=== PATIENT | male | born 1945 | race Caucasian/White ===

== ENCOUNTER 2024-07-17 05:48 | Observation (INO) | payer OTHER ==
[2024-07-11 13:30] LABS: BASOPHILS # (AUTO) 0.02 K/uL (0.00-0.20); BASOPHILS % (AUTO) 0.3 % (0.0-5.0); EOSINOPHILS % (AUTO) 1.3 % (0.0-8.0); HEMATOCRIT 36.6 % (42-54); IMMATURE GRANULOCYTE ABSOLUTE 0.03 K/uL (0-1); LYMPHOCYTES # (AUTO) 2.1 K/uL (1.0-4.8); LYMPHOCYTES % (AUTO) 28.3 % (21.0-51.0); MEAN CORPUSCULAR HEMOGLOBIN 28.7 pg (27.0-33.0); MEAN CORPUSCULAR HGB CONC 32.5 g/dL (32.0-36.0); MEAN CORPUSCULAR VOLUME 88.4 fL (79-99); MONOCYTES # (AUTO) 0.8 K/uL (0.1-1.0); MONOCYTES % (AUTO) 11.1 % (3.0-13.0); NEUTROPHILS # (AUTO) 4.4 K/uL (1.8-7.7); NEUTROPHILS % (AUTO) 58.6 % (40.0-77.0); PLATELET COUNT (AUTO) 241 K/uL (130-400); RED BLOOD CELL COUNT(AUTO) 4.14 MIL/uL (4.50-6.20); RED CELL DISTRIBUTION WIDTH 14.3 % (11.0-15.5); WHITE BLOOD COUNT (AUTO) 7.5 K/uL (4.8-10.8)
[2024-07-11 13:40] LABS: APPEARANCE,URINE CLEAR (CLEAR); BILIRUBIN,URINE NEGATIVE (NEGATIVE); COLOR,URINE LIGHT-YELLOW (YELLOW); GLUCOSE, URINE (UA) NEGATIVE (NEGATIVE); KETONES,URINE NEGATIVE (NEGATIVE); LEUKOCYTE ESTERASE ,URINE NEGATIVE Leu/uL (NEGATIVE); NITRATE,URINE NEGATIVE (NEGATIVE); OCCULT BLOOD,URINE NEGATIVE (NEGATIVE); PH,URINE 5.5 (5.0-8.0); PROTEIN,URINE NEGATIVE (NEGATIVE); UROBILINOGEN,URINE 0.2 mg/dL (0.2-1.0)
[2024-07-11 13:41] LABS: CREATININE 1.1 mg/dL (0.5-1.3); POTASSIUM 4.2 mmol/L (3.5-5.1)
[2024-07-11 13:42] LABS: INR 0.97 (0.85-1.15); PROTHROMBIN TIME 10.5 SEC (9.6-11.6)
[2024-07-11 13:43] LABS: ADD UA MICROSCOPIC NO
[2024-07-11 13:43] LABS: PARTIAL THROMBOPLASTIN TIME 27.9 SEC (26.3-35.5)
[2024-07-11 14:05] VITALS: BP 130/70; PULSE 63; RESP 18; TEMP 98.1
[~2024-07-17] VITALS: Ht 176.8 cm; Wt 111.0 kg
[2024-07-17] VITALS (26 sets, daily range): BP systolic 96–156; BP diastolic 40–75; PULSE 55–67; RESP 15–21; TEMP 97.3–97.9; O2SAT 96–100
[~2024-07-17 05:48] MED LIST: ASPI-1197 PO; ATOR20TA65 PO; BETA1TAB20 PO; CARB15DR OP; CARV6.25 PO; CHOL378P14 PO; CYAN100099 PO; FOLI1 PO; HYDR12.54 PO; LATA2.5D14 OP; LID5O TP; LISI40TA9 PO; METF-445 PO; OMEP20CA12 PO; OXYB5TAB20 PO; PRIM250T24 PO; VITA-427 PO
[2024-07-17] MEDS: acetaMINOPHEN 100 ML ONE (06:35)
[2024-07-17] MEDS: FAMOTIDINE 20MG VIAL IV ONE (06:35)
[2024-07-17] MEDS ORDERED: ROPivacaine 0.5% 5MG/ML 30ML ONE (06:43)
[2024-07-17] MEDS ORDERED: ketaMINE HCL 100 MG/ML 5ML VIAL IJ ONE (06:46)
[2024-07-17] MEDS ORDERED: LIDOCAINE PF 100MG/5ML (2%) SYRINGE 5ML ONE (06:51)
[2024-07-17] MEDS ORDERED: proPOFol 10 MG/ML 20ML VIAL IV ONE (06:52)
[2024-07-17] MEDS ORDERED: rocuRONium bROMide 10MG/1ML 5ML VL ONE ×2 (06:52→08:16)
[2024-07-17] MEDS: ceFAZolin SODIUM 2 GM VIAL ONE (06:53)
[2024-07-17] MEDS: 0.9%NACL 1000ML 1,000 ML IV ONE (06:53)
[2024-07-17] MEDS ORDERED: FENTanyl CITRate PF 50 MCG/1 ML 2ML VIAL ONE (06:53)
[2024-07-17] MEDS ORDERED: dexaMETHasone SOD PHOSPHATE 10MG/ML 1ML VIAL ONE (07:27)
[2024-07-17] MEDS ORDERED: ondanSETRON 4MG INJ ONE (07:27)
--- NOTE | 2024-07-17 07:27 | DS ---
Discharge Summary Hospital Course Summary: The patient was admitted to the hospital postoperatively on 07/17/2024 after undergoing right total knee arthroplasty. They did well with routine postoperative pain control. They worked well with physical therapy. Hospital course was otherwise uncomplicated. They were subsequently able to be discharged on postoperative day 2 once discharge arrangements were made with home health physical therapy. Piping Blocker(s): none Procedure(s): Right total knee arthroplasty, 07/17/2024 Assessment/Plan: ASSESSMENT: Postop day two status post right total knee arthroplasty PLAN: See discharge instructions Discharge Instructions: Begin working with Home Health physical therapy. Dressing may be removed 07/20/2024 and left open to air. Showers ok allowing soap and water to run over the wound. Pat dry. Do not submerge wound in tub/pool. Do not apply ointments. Do not apply Betadine. Do not apply peroxide. Ice packs to decrease pain/swelling. Prescriptions have been sent to the pharmacy: *Genes[place] 5/325mg 1-2 tab every 6 hours as needed for severe pain. (please call for refills) Cyclobenzaprine 5mg 1 tab every 8 hours as needed for muscle spasm pain. Gabapentin 100mg 1 tab every 8 hours (may discontinue if drowsy). Colace 100mg 1 tab orally twice a day as needed for constipation. Aspirin 81 mg twice a day for 30 days to prevent blood clots. Call for a follow-up appointment in 2-3 weeks at [facility]. Home Medications: Reported Medications Vitamin B Complex (Vitamin B Complex) 1 Each Tablet, 1 EACH PO AM, TAB 07/14/24 Primidone (Mysoline) 250 Mg Tablet, 250 MG PO BID, TAB 07/14/24 Oxybutynin Chloride (Oxybutynin Chloride) 5 Mg Tablet, 1 TAB PO BID for urinary discomfort for 30 Days, #60 TAB 0 Refills 07/14/24 Omeprazole (Omeprazole) 20 Mg Capsule.dr, 1 CAP PO DAILY for 30 Days, #30 CAP 0 Refills 07/14/24 Vit A/Vit C/Vit E/Zinc/Copper (Preservision Areds Tablet) 2,148-113 Tablet, 1 TAB PO BID for 30 Days, #60 TAB 0 Refills 07/14/24 Metformin HCl (Metformin HCl) 850 Mg Tablet, 1 TAB PO BID for 30 Days, #60 TAB 0 Refills 11/22/24 Lisinopril (Lisinopril) 40 Mg Tablet, 1 TAB PO DAILY for 30 Days, #30 TAB 0 Refills 07/14/24 Lidocaine HCl (Lidocaine HCl 5% Oint 36Gm) 5 % Oint, 2 APPL TP AM PRN for PAIN, APPL 07/14/24 Latanoprost (Latanoprost) 0.005 % Drops, 1 DROP OP HS, ML 0 Refills 07/14/24 Hydrochlorothiazide (Hydrochlorothiazide) 12.5 Mg Tablet, 12.5 MG PO BID, TAB 07/14/24 Folic Acid (Folvite) 1 Mg Tab, 1 TAB PO DAILY for 30 Days, #30 TAB 0 Refills 07/14/24 Cyanocobalamin (Vitamin B-12) (B-12) 1,000 Mcg Tablet, 1 TAB PO DAILY for 30 Days, #30 TAB 0 Refills 07/14/24 Cholestyramine (with Sugar) (Cholestyramine Powder) 4 Gram Powder, 378 GM PO AM, APPL 07/14/24 Carboxymethylcellulose Sodium (Refresh Tears) 0.5 % Drops, 1 DROP OP 5XDAY for 30 Days, #15 ML 0 Refills 07/14/24 Aspirin (Aspirin) 81 Mg Tab.chew, 1 TAB PO HS for 30 Days, #30 TAB 0 Refills 07/14/24 Atorvastatin Calcium (Atorvastatin Calcium) 20 Mg Tablet, 20 MG PO HS, TAB 07/14/24 Carvedilol (Carvedilol) 6.25 Mg Tablet, 1 TAB PO BID for 30 Days, #60 TAB 0 Refills 07/14/24 RHEA MACARIO MD Jul 17, 2024 07:27
[2024-07-17] MEDS ORDERED: Carboxymethylcellulose Sodium (Refresh Tears) 1 DROP OP SCH (07:30)
[2024-07-17] MEDS ORDERED: CYCLOBENZAPRINE HCL 10 MG TABLET PO PRN (07:30)
[2024-07-17] MEDS ORDERED: PoTASSium chloRIDE 20MEQ ER 20 MEQ ERTAB PO PRN (07:30)
[2024-07-17] MEDS ORDERED: PoTASSium chl 10% ELIXIR 20MEQ 20 MEQ/15 ML UDCUP PO PRN (07:30)
[2024-07-17] MEDS ORDERED: DiphenhydrAMINE HCL 50 MG/ML VIAL IVP PRN (07:30)
[2024-07-17] MEDS ORDERED: FERROUS FUMARATE 324 MG TABLET PO PRN (07:30)
[2024-07-17] MEDS ORDERED: CALCIUM CARB 500MG PO PRN (07:30)
[2024-07-17] MEDS ORDERED: ondanSETRON 4MG INJ IVP PRN (07:30)
[2024-07-17] MEDS ORDERED: PoTASSium chloRIDE 20MEQ/100ML 100 ML IV PRN (07:30)
[2024-07-17] MEDS: TRANEXAMIC ACID 1000MG/10ML ONE ×2 (07:35→09:25)
--- NOTE | 2024-07-17 07:35 | EKG ---
[facility] Test Date: 2024-07-17 Test Time: 06:31:57 Pat Name: BROWN CARRERO Department: [facility] Room: 408 Gender: M Wood Calker: [id number] : 1945 Requested By: RHEA MACARIO Order Number: [id number] Reading MD: Jamilah Ashley Measurements Intervals [place] Rate: 54 P: -28 [place]: 159 QRS: -15 QRSD: 93 T: 23 QT: 411 QTc: 390 Interpretive Statements Sinus rhythm No previous ECG available for comparison Electronically Signed On 07-17-2024 10:51:29 LEATHER CURRIER by Jamilah Ashley Please click the below link to view image of tracing.
[2024-07-17] MEDS ORDERED: ePHEDrine SULFate 50 MG/ML AMPULE ONE (07:38)
[2024-07-17] MEDS: ketOROlac 30MG VIAL (30MG/ML) ONE (07:48)
[2024-07-17] MEDS: ROPivacaine 0.5% 5MG/ML 30ML ONE (07:48)
[2024-07-17] MEDS ORDERED: NEOSTIGMINE METHYLSULFATE 1MG/ML IV ONE (08:03)
[2024-07-17] MEDS ORDERED: GLYCOPYRROLATE 0.2 MG/ML 5 ML VIAL ONE (08:03)
[2024-07-17] MEDS: VIT A PO SCH (09:00)
[2024-07-17] MEDS: carVEDIlol 6.25 MG TABLET PO SCH (09:00)
[2024-07-17] MEDS: FOLic ACID 1 MG TABLET PO SCH (09:00)
[2024-07-17] MEDS: polyETHYLene GLYCol 3350 17 GM POWD.PACK PO SCH (09:00)
[2024-07-17] MEDS: CHOLESTYRAMINE 378 GM PO SCH (09:00)
[2024-07-17] MEDS: hydroCHLOROthiazide 25 MG TABLET PO SCH (09:00)
[2024-07-17] MEDS: PRIMIDONE 250 MG PO SCH (09:00)
[2024-07-17] MEDS: VIT C PO SCH (09:00)
[2024-07-17] MEDS: doCUSate SODIUM 100 MG CAP PO SCH (09:00)
[2024-07-17] MEDS: [UNRECOGNIZED DRUG - OTHER] PO SCH (09:00)
[2024-07-17] MEDS: GABApentin 100 MG CAPSULE PO SCH (09:00)
[2024-07-17] MEDS: LISINOPRIL 40 MG TABLET PO SCH (09:00)
[2024-07-17] MEDS: ZINC PO SCH (09:00)
[2024-07-17] MEDS: COPPER PO SCH (09:00)
[2024-07-17] MEDS: VIT E PO SCH (09:00)
[2024-07-17] MEDS: VITAMIN B COMPLEX 1 CAPSULE PO SCH (09:00)
[2024-07-17] MEDS: ketOROlac 15MG/ML VIAL (15MG/ML) IV SCH (10:12)
[2024-07-17] MEDS: ketOROlac 15MG/ML VIAL (15MG/ML) ONE (10:13)
[2024-07-17] MEDS: metFORmin HCL 500 MG TABLET PO SCH (11:12)
[2024-07-17] MEDS: PANTOPrazole 40 MG TAB DR PO SCH (11:12)
[2024-07-17] MEDS: 0.9%NACL 1000ML 1,000 ML IV SCH (11:30)
[2024-07-17] MEDS: HYDROcodone/APAP 5/325 1 TAB TABLET PO PRN (11:36)
--- NOTE | 2024-07-17 12:03 | HMCIMG ---
KNEE/PATELLA 1-2VWS RT REASON: S/P RT TKA SURGERY TECHNIQUE: 2 views were obtained. FINDINGS: There is a right total knee joint prosthesis in place. Remaining bone appears unremarkable. There are surgical changes in the soft tissue. There is no unexpected foreign body. IMPRESSION: 1. Documentation of right knee joint prosthesis
--- NOTE | 2024-07-17 14:18 | OP ---
Operative Note: DATE OF PROCEDURE: 07/17/24 PREOPERATIVE DIAGNOSIS: Right knee osteoarthritis. POSTOPERATIVE DIAGNOSIS: Right knee osteoarthritis. PROCEDURE PERFORMED: Right knee total knee arthroplasty. SURGEON: Chastity Lugo MD [employer] SALES CONSULTANT: Noy Keen. ANESTHESIA: General with adductor canal block. ANESTHESIA: GRETTA Nino. ESTIMATED BLOOD LOSS: 50cc. COMPLICATIONS: None. DRAINS: None. SPECIMENS REMOVED: resected bone. Not sent to pathology. IMPLANTS: [employer] Journey II BCS size 9 Oxinium femur, size 8 tibial base plate, 35 x 7.5 mm patella, 9 mm polyethylene STATEMENT OF MEDICAL NECESSITY: The patient is a 79-year-old male who suffers from right knee osteoarthritis failing conservative management. After discussion of the risks, benefits, and alternatives with the patient, they voluntarily agreed to undergo the aforementioned procedure. DESCRIPTION OF PROCEDURE: Patient was properly identified in the preoperative holding area. Surgical site marking was verified and surgery consent reviewed. The patient was then taken to the operating room and placed in supine position on the OR table. After induction of general anesthesia, preoperative antibiotics were given, all bony prominences were well-padded, and a well padded tourniquet was applied but not inflated at this time. The right lower extremity was then prepped and draped in usual sterile fashion. Surgical time out was done verifying correct surgery, side, site, and location to be performed. We then began the procedure by exsanguinating the limb using an Esmarch and inflating the tourniquet to 350 mmHg. At this point, we made an anterior midline incision using a 10 blade, coming down sharply the level of the fascia. Skin flaps were elevated medially and laterally. We then obtained a clean 10 blade and performed a standard medial parapatellar arthrotomy. We excised the infrapatellar fat pad. We performed our soft tissue releases off of the tibia. We transected the ACL and removed the anterior portion of the medial & lateral meniscus. We then brought the knee into hyperflexion with the patella everted. We used our entry reamer to enter the femoral canal. We then placed our intramedullary cutting guide for our distal femoral cutting block. We then performed our distal femoral osteotomy ensuring appropriate rotation and removed the bony wafer. We then removed these pins and block and then used jig 2 to size the distal femur with the after mentioned size found. We then placed our 5-in-1 cutting block in 3 degrees of external rotation and took our 5 cuts ensuring to protect the patellar tendon and the collateral ligaments. We then removed the cutting block and our bony fragments using a curved osteotome. We then placed our PCL retractor subluxating the tibia anteriorly. Using an extra medullary tibial cutting guide, we hung the block for our proximal tibial cut taking 2 mm off the more diseased portion. Prior to pinning this block in place, we ensured appropriate varus/valgus alignment and posterior slope similar to the [place] slope of the patient's knee. We then performed our proximal tibial osteotomy and removed the bony wafer using Bovie electrocautery to release any remaining soft tissue attachments. We then used our tibial sizing paddle and checked once more for varus & valgus alignment and found this to be appropriate. At this point, we pinned our tibial paddle in place. We then removed the PCL retractor and subluxated the tibia posteriorly while we placed our femoral trial component. We then finished preparing the notch with the reamer and box chisel. The notch portion of the trial femoral component was then placed. A posterior stabilized polyethylene, size 9 trial was placed. The knee was then taken through range of motion and found to have stable full range of motion. We then placed a bump under the ankle and everted the patella to perform our freehand cut of the undersurface the patella. We then sized our patella and reamed to the lug holes for this. We placed our trial patellar component and begin to take the knee through range of motion. The patella had significant lateral tracking so we performed a large lateral release. There was still mild lateral tracking that improved with towel clip approximation. We e lected to use the 7.5 thickness implant. At this point we began removing our trial components and punched the tibial keel prior to removing our tibial trial component. Final components were opened and cement was mixed on the back table while we injected local cocktail in the posterior capsule. We then thoroughly irrigated out the bone and dried the bony surfaces. We cemented our tibial component in place ensuring to remove excess cement and placed our trial polyethylene. We then cemented our femoral component in place once again taking time to ensure excess cement was removed leg was brought into full extension to help squeeze the excess cement from around the femoral component. We then brought the knee back in a flexion to remove this portion of the cement at this point we placed the ankle in a bump thoroughly irrigated off the patellar component and cemented our patellar component in standard fashion again removing excess cement. While we waited for the cement to cure, we thoroughly irrigated out the wound with normal saline. Once our cement had cured, we took the knee through a range of motion and found full and stable range of motion. We then elected to use the size 9 polyethylene and removed our trial polyethylene. We impacted our final polyethylene component in place in standard fashion and took the knee through a range of motion check once more. This was satisfactory so we began to repair the arthrotomy using #1 Vicryl in interrupted [id number] fashion. Subcutaneous tissue was repaired using 2-0 Vicryl. Running subcuticular 3-0 Monocryl stitch with Dermabond placed over this for the skin. We then applied a foam barrier dressing and a pressure dressing consisting of 4 x 4's fluffs and an Yevgeniy wrap. The tourniquet was then deflated. Patient was awakened from anesthesia, and they were taken to the recovery room in stable condition. CHASTITY LUGO MD Jul 17, 2024 14:18
[2024-07-17] MEDS: ceFAZolin SODIUM 2 GM VIAL IVP SCH (15:17)
--- NOTE | 2024-07-17 15:45 | NUR ---
ORTHO COORDINATOR: TEACHING REGARDING DVT AND PNEUMONIA PREVENTION, PAIN EXPECTATIONS AND PAIN MANAGEMENT. PATIENT UP TO CHAIR. AT BEDSIDE. SCD MACHINE IN ROOM. PATIENT RETURN DEMONSTRATED FOOT FLEXION AND EXTENSION EXERCISES. PAIN SCALE REVIEWED. PATIENT RATES CURRENT PAIN AT 1/10. INFORMED PATIENT THE REGIONAL BLOCK WILL BEGIN TO WEAR OFF WITHIN THE NEXT 8-12 HOURS AND TO MANAGE HIS PAIN. EDUCATED WE HAVE MEDICATION FOR PAIN FROM 1-10 ON PAIN SCALE. GOAL WAS TO MEDICATE PRIOR TO EXCESSIVE PAIN. PATIENT AND VERBALIZED UNDERSTANDING. PATIENT HAS NO ADDITIONAL QUESTIONS OR CONCERNS AT THIS TIME.
[2024-07-17] MEDS: INSULIN humuLIN R 100 UNIT/ML 3ML SQ SCH (16:30)
--- NOTE | 2024-07-17 16:38 | NUR ---
DCP CM DC MINE INSPECTOR MET WITH PT. PT IS INDEPENDENT PRIOR TO SURGERY, LIVES AT HOME WITH SPOUSE. DENIES ANY EQUIPMENT/SERVICES. FEELS SAFE TO GO BACK HOME, STILL DRIVE, SPOUSE ABLE TO ASSIST WITH TRANSPORTATION AND NEEDS NECESSARY. DISCUSSED MD RECOMMENDATIONS FOR HOME W/HH AND DME PT WILL NEED WALKER AND 3IN1 CHAIR, PT AGREEABLE, CONSENT SIGNED [facility] FOR [facility]. CM SENT ORDER, CLINICALS TO [facility] VIA SECURE FAX AND EMAIL, CONFIRMATION RECEIVED. PENDING REP RESPONSE. PT PENDING [facility] APPROVAL AND ASSIGN [facility] HEALTH AND DME. PRIMARY NURSE KHADRA MADE AWARE. DR MACARIO UPDATED. CM TO CONTINUE TO FOLLOW UP. Addendum: 07/17/24 at 1642 by JUNITO DUARTE LVN Amended: Links added.
[2024-07-17] MEDS: LATANOPROST 2.5 ML DROPS OP SCH (21:00)
[2024-07-17] MEDS: METFORMIN HCL 850 MG PO SCH (21:02)
[2024-07-17] MEDS: atorVAStatin 20 MG TABLET PO SCH (21:05)
--- NOTE | 2024-07-18 03:24 | NUR ---
Pt. has been tolerating oral fluids w/o n/v; refuses I.v. fluids.
[2024-07-18 04:31] VITALS: BP 122/59; PULSE 65; RESP 18; TEMP 97.4
[2024-07-18 05:20] LABS: HEMATOCRIT 30.7 % (42-54); MEAN CORPUSCULAR HGB CONC 31.9 g/dL (32.0-36.0); MEAN CORPUSCULAR VOLUME 87.7 fL (79-99); RED BLOOD CELL COUNT(AUTO) 3.5 MIL/uL (4.50-6.20); RED CELL DISTRIBUTION WIDTH 14.3 % (11.0-15.5); WHITE BLOOD COUNT (AUTO) 8.8 K/uL (4.8-10.8)
[2024-07-18 06:18] LABS: POTASSIUM 4.1 mmol/L (3.5-5.1)
[2024-07-18 06:19] LABS: CREATININE 1.5 mg/dL (0.5-1.3)
[2024-07-18] MEDS ORDERED: ketOROlac 15MG/ML VIAL (15MG/ML) IV PRN (07:30)
--- NOTE | 2024-07-18 07:53 | PN ---
Ortho postop day one. This morning patient is already out of bed enjoying his breakfast reporting adequate pain control. He is in no acute distress. Vital signs have remained stable. Afebrile. Voiding on his own without difficulty. Laboratory results reviewed. Noted to have a drop in hemoglobin and hematocrit as expected after TKA. Patient is asymptomatic and we will address per protocol. Incentive spirometry performed as instructed and returned demonstration adequate. The Yevgeniy bandage is removed. Anterior dressing intact. Gastrocnemius a soft nontender. Negative Homans. He is seated with the knee flex to 90 and have provided him a footstool to alternate extension. Extension -20. He has been applying ice. He has been ambulating in the confines of his room with the restroom privileges. He is pending further physical therapy this morning. PT yesterday 80 ft/100 ft. He is anticipating going home with a home health/PT. Voices would like discharge medications sent to [facility] in [facility]. Assessment: Status post right total knee arthroplasty. Asymptomatic acute post operative blood loss anemia. Plan: Continue with Dr. Lugo TKA protocol and discharge planning. Asymptomatic acute postoperative blood loss anemia addressed with the protocol Vitals/Labs Vital Signs Date Time Temp Pulse Resp B/P (MAP) Pulse Ox O2 Delivery O2 Flow Rate FiO2 07/18/24 04:31 97.3 65 18 122/59 98 Room Air 07/17/24 20:00 0 N/A Laboratory Tests 07/18/24 04:54 Medications Current Medications Cefazolin Sodium 2 gm STK-MED ONCE .ROUTE Last administered on 07/17/24at 07:45; Start 07/17/24 at 06:17; Stop 07/17/24 at 06:17; Status DC Sodium Chloride 1,000 ml @ As Directed STK-MED ONCE IV Last administered on 07/17/24at 06:53; Start 07/17/24 at 06:17; Stop 07/17/24 at 06:17; Status DC Acetaminophen 100 ml @ As Directed STK-MED ONCE .ROUTE; Start 07/17/24 at 06:35; Stop 07/17/24 at 06:35; Status DC Famotidine 20 mg STK-MED ONCE IV; Start 07/17/24 at 06:35; Stop 07/17/24 at 06:35; Status DC Ropivacaine 150 mg STK-MED ONCE .ROUTE; Start 07/17/24 at 06:43; Stop 07/17/24 at 06:43; Status DC Ketamine HCl 500 mg STK-MED ONCE IJ; Start 07/17/24 at 06:46; Stop 07/17/24 at 06:46; Status DC Lidocaine HCl 100 mg STK-MED ONCE .ROUTE; Start 07/17/24 at 06:51; Stop 07/17/24 at 06:57; Status DC Propofol 200 mg STK-MED ONCE IV; Start 07/17/24 at 06:52; Stop 07/17/24 at 06:57; Status DC Rocuronium [place] 50 mg STK-MED ONCE .ROUTE; Start 07/17/24 at 06:52; Stop 07/17/24 at 06:57; Status DC Fentanyl Citrate 100 mcg STK-MED ONCE .ROUTE; Start 07/17/24 at 06:53; Stop 07/17/24 at 06:57; Status DC Ketorolac Tromethamine 30 mg STK-MED ONCE .ROUTE Last administered on 07/17/24at 07:48; Start 07/17/24 at 06:59; Stop 07/17/24 at 06:59; Status DC Ropivacaine 150 mg STK-MED ONCE .ROUTE Last administered on 07/17/24at 07:48; Start 07/17/24 at 07:00; Stop 07/17/24 at 07:00; Status DC Tranexamic Acid 1,000 mg STK-MED ONCE .ROUTE Last administered on 07/17/24at 09:25; Start 07/17/24 at 07:00; Stop 07/17/24 at 07:00; Status DC Tranexamic Acid 1,000 mg STK-MED ONCE .ROUTE Last administered on 07/17/24at 07:35; Start 07/17/24 at 07:00; Stop 07/17/24 at 07:01; Status DC Sodium Chloride 1,000 ml @ 100 mls/hr Q10H IV Last administered on 07/17/24at 11:30; Start 07/17/24 at 07:30; Stop 07/18/24 at 07:29; Status DC Polyethylene Glycol 17 gm DAILY PO; Start 07/17/24 at 09:00; Stop 08/16/24 at 08:59 Bisacodyl 10 mg DAILY PRN RC; Start 07/20/24 at 07:30; Stop 08/19/24 at 07:29 Ketorolac Tromethamine 15 mg Q6H PRN IV; Start 07/18/24 at 07:30; Stop 07/22/24 at 07:29 Ferrous Fumarate 324 mg DAILY PRN PO; Start 07/17/24 at 07:30; Stop 08/16/24 at 07:29 Ondansetron HCl 4 mg Q6H PRN IVP; Start 07/17/24 at 07:30; Stop 08/16/24 at 07:29 Calcium Carbonate 500 mg Q12H PRN PO; Start 07/17/24 at 07:30; Stop 08/16/24 at 07:29 Diphenhydramine HCl 25 mg Q6H PRN IVP; Start 07/17/24 at 07:30; Stop 08/16/24 at 07:29 Cefazolin Sodium 2 gm Q8H IVP Last administered on 07/17/24at 21:01; Start 07/17/24 at 12:30; Stop 07/17/24 at 20:31; Status DC Cyclobenzaprine HCl 5 mg Q8H PRN PO; Start 07/17/24 at 07:30; Stop 08/16/24 at 07:29 Gabapentin 100 mg TID PO Last administered on 07/17/24at 21:03; Start 07/17/24 at 09:00; Stop 08/16/24 at 08:59 Ketorolac Tromethamine 15 mg Q8H IV Last administered on 07/18/24at 00:01; Start 07/17/24 at 07:30; Stop 07/17/24 at 23:31; Status DC Docusate Sodium 100 mg BID PO Last administered on 07/17/24at 21:01; Start 07/17/24 at 09:00; Stop 08/16/24 at 08:59 Potassium Chloride 100 ml @ 100 mls/hr AD PRN IV; Start 07/17/24 at 07:30; Stop 08/16/24 at 07:29 Potassium Chloride 20 meq AD PRN PO; Start 07/17/24 at 07:30; Stop 08/16/24 at 07:29 Potassium Chloride 20 meq AD PRN PO; Start 07/17/24 at 07:30; Stop 08/16/24 at 07:29 Tramadol HCl 50 mg Q6H PRN PO; Start 07/17/24 at 07:30; Stop 07/22/24 at 07:29 Acetaminophen/ Hydrocodone Bitart Q4H PRN PO Last administered on 07/18/24at 06:53; Start 07/17/24 at 07:30; Stop 07/22/24 at 07:29 Aspirin 81 mg BID PO; Start 07/18/24 at 09:00; Stop 08/17/24 at 08:59 Atorvastatin Calcium 20 mg HS PO Last administered on 07/17/24at 21:05; Start 07/17/24 at 21:00; Stop 08/16/24 at 20:59 Carvedilol 6.25 mg BID PO Last administered on 07/17/24at 21:02; Start 07/17/24 at 09:00; Stop 08/16/24 at 08:59 Folic Acid 1 mg DAILY PO; Start 07/17/24 at 09:00; Stop 08/16/24 at 08:59 Latanoprost 1 DROP HS OP; Start 07/17/24 at 21:00; Stop 08/16/24 at 20:59 Lisinopril 40 mg DAILY PO; Start 07/17/24 at 09:00; Stop 08/16/24 at 08:59 Metformin HCl 500 mg BID PO Last administered on 07/17/24at 11:12; Start 07/17/24 at 09:00; Stop 07/17/24 at 14:39; Status DC Home Med Carboxymethylcellulose Sodium (Re... 5XDAY OP; Start 07/17/24 at 07:30; Stop 08/16/24 at 07:29 Home Med Cholestyramine (with Sugar) (Cholestyram... AM PO; Start 07/17/24 at 09:00; Stop 08/16/24 at 08:59 Hydrochlorothiazide 12.5 mg BID PO Last administered on 07/17/24at 21:03; Start 07/17/24 at 09:00; Stop 08/16/24 at 08:59 Pantoprazole Sodium 40 mg DAILY PO Last administered on 07/17/24at 11:12; Start 07/17/24 at 09:00; Stop 08/16/24 at 08:59 Home Med (Primidone (Mysoline) 250 MG) BID PO; Start 07/17/24 at 09:00; Stop 08/16/24 at 08:59 Home Med (Vit A/Vit C/ Vit E/Zinc/ Tray Filler... BID PO; Start 07/17/24 at 09:00; Stop 08/16/24 at 08:59 Vitamin B Complex/ Folic Acid 1 cap DAILY PO; Start 07/17/24 at 09:00; Stop 08/16/24 at 08:59 Ondansetron HCl 4 mg STK-MED ONCE .ROUTE; Start 07/17/24 at 07:27; Stop 07/17/24 at 07:33; Status DC Dexamethasone Sodium Phosphate 10 mg STK-MED ONCE .ROUTE; Start 07/17/24 at 07:27; Stop 07/17/24 at 07:33; Status DC Ephedrine Sulfate 50 mg STK-MED ONCE .ROUTE; Start 07/17/24 at 07:38; Stop 07/17/24 at 07:38; Status DC Glycopyrrolate 1 mg STK-MED ONCE .ROUTE; Start 07/17/24 at 08:03; Stop 07/17/24 at 08:03; Status DC Neostigmine Methylsulfate 10 mg STK-MED ONCE IV; Start 07/17/24 at 08:03; Stop 07/17/24 at 08:04; Status DC Rocuronium [place] 50 mg STK-MED ONCE .ROUTE; Start 07/17/24 at 08:16; Stop 07/17/24 at 08:16; Status DC Ketorolac Tromethamine 15 mg STK-MED ONCE .ROUTE; Start 07/17/24 at 10:08; Stop 07/17/24 at 10:08; Status DC Insulin Human Regular INSULIN SLIDING SCAL... ACHS SQ; Start 07/17/24 at 16:30; Stop 08/16/24 at 16:29 Metformin HCl 850 mg BID PO Last administered on 07/17/24at 21:02; Start 07/17/24 at 21:00; Stop 08/16/24 at 20:59 Oxybutynin Chloride 5 mg ONCE ONCE PO; Start 07/17/24 at 15:00; Stop 07/17/24 at 15:01; Status DC CHETAN RUDOLPH NP Jul 18, 2024 07:53
[2024-07-18 08:00] VITALS: BP 137/61; PULSE 60; RESP 18; TEMP 97.4; O2SAT 97
[2024-07-18] MEDS: ASPIRIN 81 MG EC TAB PO SCH (09:03)
[2024-07-18] MEDS: oxyBUTYnin chloRIDE 5 MG TABLET PO ONE (09:15)
[2024-07-18] MEDS: oxyBUTYnin chloRIDE 5 MG TABLET ONE (09:31)
[2024-07-18 11:35] VITALS: BP 121/63; PULSE 63; RESP 18; TEMP 98.2
--- NOTE | 2024-07-18 15:00 | NUR ---
ORTHO COORDINATOR: REINFORCED TEACHING. PATIENT UP TO CHAIR, AT BEDSIDE. PAIN CONTROLLED WELL. PATIENT REPORTS PASSING GAS, NO BOWEL MOVEMENT. INCENTIVE SPIROMETER UTILIZED EVERY HOUR. ENCOURAGED PATIENT TO CONTINUE ONCE DISCHARGED. ENCOURAGED PATIENT TO CONTINUE PREMEDICATING PRIOR TO PHYSICAL THERAPY ONCE DISCHARGED HOME. PATIENT AND VERBALIZED UNDERSTANDING. NO ADDITIONAL QUESTIONS/CONCERNS AT THIS TIME.
--- NOTE | 2024-07-18 15:20 | NUR ---
ALISON NOTE: [facility] APPROVALS CM SPOKE TO JAI Hong/JEYSON THIS AFTERNOON, PT APPROVED FOR A HEALING TOUCH [facility] AND [facility] PURCHASE [id number]. CM SPOKE TO GABBIE Hong/[facility], MADE AWARE OF ABOVE, PER REP PT EN ROUTE FOR DELIVERY IN ROOM THIS AFTERNOON IF NOT YET DONE. CM SPOKE TO CHRIS W/A HEALING TOUCH hh [phone], MADE AWARE OF ABOVE, REP WILL INFORM NURSE ASSIGNED TO PT AND SCHEDULE FIRST VISIT ONCE DC'D. PRIMARY NURSE KHADRA MADE AWARE. DR MACARIO UPDATED. CM TO CONTINUE TO FOLLOW UP. Addendum: 07/18/24 at 1525 by JUNITO DUARTE LVN CM Amended: Links added.
[2024-07-18 16:00] VITALS: BP 151/67; PULSE 69; RESP 16; TEMP 98.1
[2024-07-18] MEDS: traMADol HCL 50 MG TABLET PO PRN (16:37)
[2024-07-18] MEDS ORDERED: AEC81 PO (16:48)
[2024-07-18] MEDS ORDERED: DOCU-116 PO (16:48)
[2024-07-18] MEDS ORDERED: HYDR-4060 PO (16:48)
[2024-07-18] MEDS ORDERED: CYCL-309 PO (16:48)
[2024-07-18] MEDS ORDERED: GABA100C PO (16:48)
--- NOTE | 2024-07-18 18:08 | NUR ---
spoke to maico from home health services, gave her patient info and call [facility] number to my extension [phone], stated she would have nurse call me back for report
--- NOTE | 2024-07-18 19:15 | NUR ---
dc patient alert x4 patient was dc'd by dr herndon today i dc'd patients iv with cath still in place and applied 2x2 gauze with tape i called and spoke to yaima from home health services and gave report i explained to patient his new prescriptions and how to take them patient also left with dme patient was taken via wheelchair by anegl jones, accompanied by , no complications
[2024-07-20] MEDS ORDERED: BisaCODYL 10 MG SUPP.RECT RC PRN (07:30)
== END 2024-07-18 19:00 | disposition home or self-care (01) ==
LOC: DAH 05:48 → DAHIP 05:49 → DAH 05:49 → 4BH 10:40
PROVIDERS: ADMIT Student in an Organized Health Care Education/Training Program; ATTEND Student in an Organized Health Care Education/Training Program
DX: M17.11 Unilateral primary osteoarthritis, right knee (principal); G89.18 Other acute postprocedural pain; D62 Acute posthemorrhagic anemia; M62.838 Other muscle spasm; I11.9 Hypertensive heart disease without heart failure; E11.9 Type 2 diabetes mellitus without complications; E78.5 Hyperlipidemia, unspecified; K21.9 Gastro-esophageal reflux disease without esophagitis; Z79.899 Other long term (current) drug therapy; Z79.84 Long term (current) use of oral hypoglycemic drugs; Z90.49 Acquired absence of other specified parts of digestive tract
CPT/HCPCS: 82040; 80048 ×2; 85025; 85610; 85730; 87086; 84134; 86140; 81003; 36415 ×2; 87641; 64447; 27447; 96374; 96376 ×2; 96375; 82948 ×6; 73560; 97161; 97116 ×4; 97530 ×5; 93005; 85027; G0378 ×29; A4663; J3490 ×8; J3010; J1100; J7030; J2003; J2704; J2405; J1885 ×4; J2710; J2795 ×2; J0690 ×3; C1713 ×2; A4649 ×2; A4930; C1776; A6255; A5120; A4215; A4223 ×2; A4222; A4221; A4216

== ENCOUNTER 2024-10-04 05:36 | Observation (INO) | payer OTHER ==
[2024-09-28 09:55] LABS: BASOPHILS # (AUTO) 0.03 K/uL (0.00-0.20); BASOPHILS % (AUTO) 0.4 % (0.0-5.0); EOSINOPHILS # (AUTO) 0.14 K/uL (0.00-0.70); EOSINOPHILS % (AUTO) 2.1 % (0.0-8.0); HEMATOCRIT 36.7 % (42-54); IMMATURE GRANULOCYTE ABSOLUTE 0.04 K/uL (0-1); LYMPHOCYTES # (AUTO) 1.9 K/uL (1.0-4.8); LYMPHOCYTES % (AUTO) 28.4 % (21.0-51.0); MEAN CORPUSCULAR HEMOGLOBIN 28.3 pg (27.0-33.0); MEAN CORPUSCULAR HGB CONC 32.4 g/dL (32.0-36.0); MEAN CORPUSCULAR VOLUME 87.4 fL (79-99); MONOCYTES # (AUTO) 0.9 K/uL (0.1-1.0); MONOCYTES % (AUTO) 12.7 % (3.0-13.0); NEUTROPHILS # (AUTO) 3.8 K/uL (1.8-7.7); NEUTROPHILS % (AUTO) 55.8 % (40.0-77.0); PLATELET COUNT (AUTO) 248 K/uL (130-400); RED CELL DISTRIBUTION WIDTH 14.1 % (11.0-15.5); WHITE BLOOD COUNT (AUTO) 6.8 K/uL (4.8-10.8)
[2024-09-28 10:39] VITALS: BP 147/68; PULSE 62; RESP 18; TEMP 97.9
[~2024-10-04] VITALS: Ht 175.3 cm; Wt 109.8 kg
[2024-10-04] VITALS (29 sets, daily range): BP systolic 106–150; BP diastolic 52–76; PULSE 63–78; RESP 12–20; TEMP 97.7–100; O2SAT 96–98
[2024-10-04] MEDS: ROPivacaine 0.5% 5MG/ML 30ML ONE
[2024-10-04] MEDS: ketOROlac 30MG VIAL (30MG/ML) ONE
[~2024-10-04 05:36] MED LIST changes: -ASPI-1197 PO; +ASPI-1443 PO; -ATOR20TA65 PO; +ATOR40TA71 PO; -BETA1TAB20 PO; -CARB15DR OP; -LID5O TP
[2024-10-04] MEDS ORDERED: FENTanyl CITRate PF 50 MCG/1 ML 2ML VIAL ONE ×3 (06:44→10:14)
[2024-10-04] MEDS ORDERED: MIDAZOLAM HCL 1 MG/ML 2ML VIAL ONE (06:45)
[2024-10-04] MEDS: 0.9%NACL 1000ML 1,000 ML IV ONE (06:45)
[2024-10-04] MEDS: ceFAZolin SODIUM 2 GM VIAL ONE ×2 (06:45→17:02)
[2024-10-04] MEDS ORDERED: proPOFol 10 MG/ML 20ML VIAL IV ONE (06:57)
[2024-10-04] MEDS ORDERED: ondanSETRON 4MG INJ ONE (06:57)
[2024-10-04] MEDS ORDERED: rocuRONium bROMide 10MG/1ML 5ML VL ONE ×2 (06:57→07:52)
[2024-10-04] MEDS ORDERED: ROPivacaine 0.5% 5MG/ML 30ML ONE (06:58)
--- NOTE | 2024-10-04 07:29 | DS ---
Discharge Summary Hospital Course Summary: The patient was admitted to the hospital postoperatively on 10/04/2024 after undergoing left total knee arthroplasty. They did well with routine postoperative pain control. They worked well with physical therapy. They developed some acute blood loss anemia but remained asymptomatic. The hospital course was otherwise uncomplicated. They were subsequently able to be discharged on postoperative day 1 once p.o. pain control was achieved inpatient mobilized were physical therapy. He has arrangements to start outpatient therapy. Marker Machine Attendant(s): none Procedure(s): Left total knee arthroplasty, 10/04/2024 Assessment/Plan: ASSESSMENT: Postop day 1 status post left total arthroplasty PLAN: See discharge instructions Discharge Instructions: Begin working with outpatient physical therapy at as previously arranged. Dressing may be removed 10/07/2024 and left open to air. Showers ok allowing soap and water to run over the wound. Pat dry. Do not submerge wound in tub/pool. Do not apply ointments. Do not apply Betadine. Do not apply peroxide. Ice packs to decrease pain/swelling. Prescriptions have been sent to the pharmacy: *[place] 5/325mg 1-2 tab every 6 hours as needed for severe pain. (please call for refills) Cyclobenzaprine 5mg 1 tab every 8 hours as needed for muscle spasm pain. Gabapentin 100mg 1 tab every 8 hours (may discontinue if drowsy). Colace 100mg 1 tab orally twice a day as needed for constipation. Aspirin 325mg twice a day for 30 days to prevent blood clots. Call for a follow-up appointment in 2-3 weeks at [facility]. Home Medications: Active Scripts Hydrocodone/Acetaminophen (Hydrocodon-Acetaminophen 5-325) 5 Mg-325 Mg Tablet, 1-2 TAB PO Q4H PRN for MODERATE/SEVERE PAIN LEVEL, #56 TAB 0 Refills Prov:RHEA MACARIO MD 10/05/24 Reported Medications Atorvastatin Calcium (Atorvastatin Calcium) 40 Mg Tablet, 40 MG PO HS, TAB 09/28/24 Aspirin (Aspirin EC) 81 Mg Tablet.dr, 81 MG PO HS, TAB 09/28/24 Vitamin B Complex (Vitamin B Complex) 1 Each Tablet, 1 EACH PO HS, TAB 07/14/24 Primidone (Mysoline) 250 Mg Tablet, 250 MG PO HS, TAB 07/14/24 Oxybutynin Chloride (Oxybutynin Chloride) 5 Mg Tablet, 1 TAB PO BID for urinary discomfort for 30 Days, #60 TAB 0 Refills 07/14/24 Omeprazole (Omeprazole) 20 Mg Capsule.dr, 1 CAP PO DAILY for 30 Days, #30 CAP 0 Refills 07/14/24 Metformin HCl (Metformin HCl) 850 Mg Tablet, 1 TAB PO BID for 30 Days, #60 TAB 0 Refills 07/14/24 Lisinopril (Lisinopril) 40 Mg Tablet, 1 TAB PO DAILY for 30 Days, #30 TAB 0 Refills 07/14/24 Latanoprost (Latanoprost) 0.005 % Drops, 1 DROP OP HS, ML 0 Refills 07/14/24 Hydrochlorothiazide (Hydrochlorothiazide) 12.5 Mg Tablet, 12.5 MG PO AM, TAB 07/14/24 Folic Acid (Folvite) 1 Mg Tab, 1 TAB PO DAILY for 30 Days, #30 TAB 0 Refills 07/14/24 Cyanocobalamin (Vitamin B-12) (B-12) 1,000 Mcg Tablet, 1 TAB PO DAILY for 30 Days, #30 TAB 0 Refills 07/14/24 Cholestyramine (with Sugar) (Cholestyramine Powder) 4 Gram Powder, 378 GM PO AM, APPL 07/14/24 Carvedilol (Carvedilol) 6.25 Mg Tablet, 1 TAB PO BID for 30 Days, #60 TAB 0 Refi lls 07/14/24 Discontinued Reported Medications Vit A/Vit C/Vit E/Zinc/Copper (Preservision Areds Tablet) 2,148-113 Tablet, 1 TAB PO BID for 30 Days, #60 TAB 0 Refills 07/14/24 Lidocaine HCl (Lidocaine HCl 5% Oint 36Gm) 5 % Oint, 2 APPL TP AM PRN for PAIN, APPL 07/14/24 Carboxymethylcellulose Sodium (Refresh Tears) 0.5 % Drops, 1 DROP OP 5XDAY for 30 Days, #15 ML 0 Refills 07/14/24 Atorvastatin Calcium (Atorvastatin Calcium) 20 Mg Tablet, 20 MG PO HS, TAB 07/14/24 Discontinued Scripts Docusate Sodium (Colace) 100 Mg Capsule, 1 CAP PO BID for 30 Days, #60 CAP 0 Refills Prov:RHEA MACARIO MD 07/18/24 Hydrocodone/Acetaminophen (Hydrocodon-Acetaminophen 5-325) 5 Mg-325 Mg Tablet, 1-2 TAB PO Q4H PRN for MODERATE/SEVERE PAIN LEVEL, #56 TAB 0 Refills Prov:RHEA MACARIO MD 07/18/24 Gabapentin (Neurontin) 100 Mg Capsule, 100 MG PO TID, #90 CAP 0 Refills Prov:RHEA MACARIO MD 07/18/24 Cyclobenzaprine HCl (Cyclobenzaprine HCl) 10 Mg Tablet, 5 MG PO Q8H PRN for MUSCLE SPASMS, #45 TAB 0 Refills Prov:RHEA MACARIO MD 07/18/24 Aspirin (ASPIRIN 81 MG ECTAB) 81 Mg Ectab, 81 MG PO BID, #60 TAB.EC 0 Refills Prov:RHEA MACARIO MD 07/18/24 RHEA MACARIO MD Oct 04, 2024 07:29
[2024-10-04] MEDS ORDERED: traMADol HCL 50 MG TABLET PO PRN (07:30)
[2024-10-04] MEDS ORDERED: ondanSETRON 4MG INJ IVP PRN (07:30)
[2024-10-04] MEDS ORDERED: PoTASSium chl 10% ELIXIR 20MEQ 20 MEQ/15 ML UDCUP PO PRN (07:30)
[2024-10-04] MEDS ORDERED: PoTASSium chloRIDE 20MEQ/100ML 100 ML IV PRN (07:30)
[2024-10-04] MEDS ORDERED: FERROUS FUMARATE 324 MG TABLET PO PRN (07:30)
[2024-10-04] MEDS ORDERED: dexaMETHasone SOD PHOSPHATE 10MG/ML 1ML VIAL ONE (07:34)
[2024-10-04] MEDS: TRANEXAMIC ACID 1000MG/10ML ONE (07:55)
[2024-10-04] MEDS ORDERED: ePHEDrine SULFate 50 MG/ML AMPULE ONE (07:58)
[2024-10-04] MEDS ORDERED: phenylEPHRINE HCL 10 MG/ML 1ML VIAL IV ONE (08:12)
[2024-10-04] MEDS ORDERED: NEOSTIGMINE METHYLSULFATE 1MG/ML IV ONE (10:12)
[2024-10-04] MEDS ORDERED: GLYCOPYRROLATE 0.2 MG/ML 5 ML VIAL ONE (10:12)
[2024-10-04] MEDS ORDERED: ketOROlac 30MG VIAL (30MG/ML) ONE (10:15)
[2024-10-04] MEDS: ketOROlac 15MG/ML VIAL (15MG/ML) IV SCH ×2 (10:53→18:08)
[2024-10-04] MEDS: acetaMINOPHEN 100 ML ONE (10:55)
[2024-10-04] MEDS: MEPERIDINE-PF 50 MG/ML SYG ONE (11:05)
[2024-10-04] MEDS: ketOROlac 15MG/ML VIAL (15MG/ML) ONE (11:06)
--- NOTE | 2024-10-04 11:48 | HMCIMG ---
KNEE/PATELLA 1-2VWS LT HISTORY: Left total knee arthroplasty COMPARISON: None TECHNIQUE: 2 images of left knee were obtained. FINDINGS: Left total knee replacement changes are seen. Soft tissue swelling and soft tissue emphysema are seen consistent with postop changes. Alignment appears be grossly adequate. There is no acute displaced fracture or dislocation. Degenerative changes are seen. IMPRESSION: 1. Findings as described above.
[2024-10-04] MEDS: HYDROcodone/APAP 5/325 1 TAB TABLET PO PRN (11:57)
[2024-10-04] MEDS: GABApentin 100 MG CAPSULE PO SCH (11:57)
[2024-10-04] MEDS: CYCLOBENZAPRINE HCL 10 MG TABLET PO PRN (11:58)
--- NOTE | 2024-10-04 13:15 | NUR ---
Order received and patient seen in PACU. Attempted ambulationg however patient could not stand fully erect, L knee kept buckling. Patient tolerated standing for approx 2 minutes. Would not recommend patient to get up with nursing as he is a fall risk. PT to reassess 10/05 am and recommend accordingly. Addendum: 10/04/24 at 1413 by KATE CELAYA PT Amended: Links added.
[2024-10-04] MEDS: ceFAZolin SODIUM 2 GM VIAL IVP SCH (16:06)
[2024-10-04] MEDS: INSULIN humuLIN R 100 UNIT/ML 3ML SQ SCH (16:30)
[2024-10-04] MEDS: ASPIRIN 325MG TAB PO SCH (16:59)
[2024-10-04] MEDS: doCUSate SODIUM 100 MG CAP PO SCH (16:59)
[2024-10-04] MEDS: carVEDIlol 6.25 MG TABLET PO SCH (16:59)
[2024-10-04] MEDS: polyETHYLene GLYCol 3350 17 GM POWD.PACK PO SCH (17:00)
[2024-10-04] MEDS: CHOLESTYRAMINE 378 GM PO SCH (17:00)
[2024-10-04] MEDS: metFORmin HCL 500 MG TABLET PO SCH (17:00)
[2024-10-04] MEDS: [UNRECOGNIZED DRUG - OTHER] PO SCH (17:00)
[2024-10-04] MEDS: hydroCHLOROthiazide 25 MG TABLET PO SCH (17:00)
[2024-10-04] MEDS: FOLic ACID 1 MG TABLET PO SCH (17:00)
[2024-10-04] MEDS: PANTOPrazole 40 MG TAB DR PO SCH (17:01)
[2024-10-04] MEDS: LISINOPRIL 40 MG TABLET PO SCH (17:01)
--- NOTE | 2024-10-04 17:04 | NUR ---
PATIENT ARRIVED IN ORTHO PATIENT ARRIVED AT 1700. RESTING COMFORTABLY, IN DISTRESS AND RATES PAIN A 2 OUT OF 10. BLOOD PRESSURE IS 137/75 HR 74 O2 SAT 96% ON ROOM AIR.
[2024-10-04] MEDS: 0.9%NACL 1000ML 1,000 ML IV SCH (17:30)
--- NOTE | 2024-10-04 18:21 | OP ---
Operative Note: DATE OF PROCEDURE: 10/04/24 PREOPERATIVE DIAGNOSIS: Left knee osteoarthritis. POSTOPERATIVE DIAGNOSIS: Left knee osteoarthritis. PROCEDURE PERFORMED: Left knee total knee arthroplasty. SURGEON: Chastity Lugo MD ASSET RECOVERY SPECIALIST: Noy Keen. ANESTHESIA: General with adductor canal block. ANESTHESIA: HOMICIDE SQUAD LIEUTENANT Jose Ventura. ESTIMATED BLOOD LOSS: 50cc. COMPLICATIONS: None. DRAINS: None. SPECIMENS REMOVED: resected bone. Not sent to pathology. IMPLANTS: [employer] II BCS size 9 Oxinium femur, size 8 tibial base plate, 35 mm patella, 9 mm polyethylene STATEMENT OF MEDICAL NECESSITY: The patient is a 79-year-old male who suffers from left knee osteoarthritis failing conservative management. After discussion of the risks, benefits, and alternatives with the patient, they voluntarily agreed to undergo the aforementioned procedure. DESCRIPTION OF PROCEDURE: Patient was properly identified in the preoperative holding area. Surgical site marking was verified and surgery consent reviewed. The patient was then taken to the operating room and placed in supine position on the OR table. After induction of general anesthesia, preoperative antibiotics were given, all bony prominences were well-padded, and a well padded tourniquet was applied but not inflated at this time. The left lower extremity was then prepped and draped in usual sterile fashion. Surgical time out was done verifying correct surgery, side, site, and location to be performed. We then began the procedure by exsanguinating the limb using an Esmarch and inflating the tourniquet to 350 mmHg. At this point, we made an anterior midline incision using a 10 blade, coming down sharply the level of the fascia. Skin flaps were elevated medially and laterally. We then obtained a clean 10 blade and performed a standard medial parapatellar arthrotomy. We excised the infrapatellar fat pad. We performed our soft tissue releases off of the tibia. We transected the ACL and removed the anterior portion of the medial & lateral meniscus. We then brought the knee into hyperflexion with the patella everted. We used our entry reamer to enter the femoral canal. We then placed our intramedullary cutting guide for our distal femoral cutting block. We then performed our distal femoral osteotomy ensuring appropriate rotation and removed the bony wafer. We then removed these pins and block and then used jig 2 to size the distal femur with the after mentioned size found. We then placed our 5-in-1 cutting block in 3 degrees of external rotation and took our 5 cuts ensuring to protect the patellar tendon and the collateral ligaments. We then removed the cutting block and our bony fragments using a curved osteotome. We then placed our PCL retractor subluxating the tibia anteriorly. Using an extra medullary tibial cutting guide, we hung the block for our proximal tibial cut taking 2 mm off the more diseased portion. Prior to pinning this block in place, we ensured appropriate varus/valgus alignment and posterior slope similar to the havasupai slope of the patient's knee. We then performed our proximal tibial osteotomy and removed the bony wafer using Bovie electrocautery to release any remaining soft tissue attachments. We then used our tibial sizing paddle and checked once more for varus & valgus alignment and found this to be appropriate. At this point, we pinned our tibial paddle in place. We then removed the PCL retractor and subluxated the tibia posteriorly while we placed our femoral trial component. We then finished preparing the notch with the reamer and box chisel. The notch portion of the trial femoral component was t hen placed. A posterior stabilized polyethylene, size 9 trial was placed. The knee was then taken through range of motion and found to have stable full range of motion. We then placed a bump under the ankle and everted the patella to perform our freehand cut of the undersurface the patella. We then sized our patella and reamed to the lug holes for this. We placed our trial patellar component and begin to take the knee through range of motion. The patella had extreme lateral tracking, and we performed a lateral release. However the patella continued to have significant lateral tracking. We adjusted our tibial component rotation and placed a towel clip to approximate the soft tissues and had better patellar tracking. At this point we began removing our trial components and punched the tibial keel prior to removing our tibial trial component. Final components were opened and cement was mixed on the back table while we injected local cocktail in the posterior capsule. We then thoroughly irrigated out the bone and dried the bony surfaces. We cemented our tibial component in place ensuring to remove excess cement and placed our trial polyethylene. We then cemented our femoral component in place once again taking time to ensure excess cement was removed leg was brought into full extension to help squeeze the excess cement from around the femoral component. We then brought the knee back in a flexion to remove this portion of the cement at this point we placed the ankle in a bump thoroughly irrigated off the patella and cemented our patellar component in standard fashion again removing excess cement. While we waited for the cement to cure, we thoroughly irrigated out the wound with normal saline. Once our cement had cured, we took the knee through a range of motion and found full and stable range of motion. We then elected to use the size 9 polyethylene and removed our trial polyethylene. We impacted our final polyethylene component in place in standard fashion and took the knee through a range of motion check once more. This was satisfactory so we began to repair the arthrotomy using #1 Vicryl in interrupted [id number] fashion. Subcutaneous tissue was repaired using 2-0 Vicryl. Running subcuticular 3-0 Monocryl stitch with Dermabond placed over this for the skin. We then applied a foam barrier dressing and a pressure dressing consisting of 4 x 4's fluffs and an Yevgeniy wrap. The tourniquet was then deflated. Patient was awakened from anesthesia, and they were taken to the recovery room in stable condition. CHASTITY LUGO MD Oct 04, 2024 18:21
[2024-10-04] MEDS: atorVAStatin 40 MG TABLET PO SCH (20:28)
[2024-10-04] MEDS: VITAMIN B COMPLEX PO SCH (20:34)
[2024-10-04] MEDS: PRIMIDONE 250 MG PO SCH (20:34)
[2024-10-04] MEDS: LATANOPROST 2.5 ML DROPS OP SCH (20:34)
[2024-10-05] VITALS: BP 132/75; PULSE 75; RESP 20; TEMP 98.2
[2024-10-05 04:00] VITALS: BP 122/57; PULSE 75; RESP 20; TEMP 98.3
[2024-10-05 04:48] LABS: HEMATOCRIT 30.1 % (42-54); MEAN CORPUSCULAR HEMOGLOBIN 28.1 pg (27.0-33.0); MEAN CORPUSCULAR HGB CONC 31.6 g/dL (32.0-36.0); MEAN CORPUSCULAR VOLUME 89.1 fL (79-99); RED BLOOD CELL COUNT(AUTO) 3.38 MIL/uL (4.50-6.20); RED CELL DISTRIBUTION WIDTH 14.2 % (11.0-15.5); WHITE BLOOD COUNT (AUTO) 8.1 K/uL (4.8-10.8)
[2024-10-05 05:00] LABS: CREATININE 1.3 mg/dL (0.5-1.3); POTASSIUM 3.8 mmol/L (3.5-5.1)
[2024-10-05] MEDS: PoTASSium chloRIDE 20MEQ ER 20 MEQ ERTAB PO PRN (06:07)
[2024-10-05] MEDS: CALCIUM CARB 500MG PO PRN (06:07)
[2024-10-05] MEDS: ketOROlac 15MG/ML VIAL (15MG/ML) IV PRN (06:13)
[2024-10-05] MEDS: ketOROlac 15MG/ML VIAL (15MG/ML) ONE (06:14)
[2024-10-05 08:00] VITALS: BP 132/65; PULSE 71; RESP 18; TEMP 98.5
--- NOTE | 2024-10-05 08:28 | PN ---
Ortho postop day one. Patient is awake alert and oriented however he is still in bed. I have asked for him to try to spend the majority of the day out of bed and he understands and agrees. Reports acceptable pain control overnight. Vital signs have remained stable. He is afebrile. Labs reviewed noted to have a drop in hemoglobin and hematocrit as expected after total knee arthroplasty patient is asymptomatic. We will address per protocol as necessary. He is performing incentive spirometry as instructed with returned demonstration adequate. SCD stockings are present however they have not been on. I have asked for the SCD stockings to be on while he is in bed otherwise again spend the majority of the out of bed. He is instructed on gentle range of motion while seated in a chair. The gastrocnemius a soft nontender. Negative Homans. Dressing intact to the anterior joint with ice present. Unable to ambulate yesterday with PT and is pending therapy this morning. Patient has already set up outpatient physical therapy and is pending to start on Wednesday. Assessment: Status post left total knee arthroplasty. Asymptomatic acute postoperative blood loss anemia. Plan: Continue with Dr. Lugo's TKA protocol and discharge planning. Asymptomatic acute postoperative blood loss anemia addressed with the protocol as necessary Vitals/Labs Vital Signs Date Time Temp Pulse Resp B/P (MAP) Pulse Ox O2 Delivery O2 Flow Rate FiO2 10/05/24 07:46 132/65 10/05/24 04:00 98.2 75 20 92 Room Air 10/04/24 19:47 0 21 Laboratory Tests 10/05/24 04:42 Medications Current Medications Cefazolin Sodium 2 gm STK-MED ONCE .ROUTE Last administered on 10/04/24at 07:52; Start 10/04/24 at 06:27; Stop 10/04/24 at 06:27; Status DC Sodium Chloride 1,000 ml @ As Directed STK-MED ONCE IV Last administered on 10/04/24at 06:45; Start 10/04/24 at 06:27; Stop 10/04/24 at 06:27; Status DC Fentanyl Citrate 100 mcg STK-MED ONCE .ROUTE; Start 10/04/24 at 06:44; Stop 10/04/24 at 06:44; Status DC Midazolam HCl 2 mg STK-MED ONCE .ROUTE; Start 10/04/24 at 06:45; Stop 10/04/24 at 06:45; Status DC Propofol 200 mg STK-MED ONCE IV; Start 10/04/24 at 06:57; Stop 10/04/24 at 06:57; Status DC Ondansetron HCl 4 mg STK-MED ONCE .ROUTE; Start 10/04/24 at 06:57; Stop 10/04/24 at 06:57; Status DC Rocuronium [place] 50 mg STK-MED ONCE .ROUTE; Start 10/04/24 at 06:57; Stop 10/04/24 at 06:57; Status DC Fentanyl Citrate 100 mcg STK-MED ONCE .ROUTE; Start 10/04/24 at 06:57; Stop 10/04/24 at 06:58; Status DC Ropivacaine 150 mg STK-MED ONCE .ROUTE; Start 10/04/24 at 06:58; Stop 10/04/24 at 06:59; Status DC Tranexamic Acid 1,000 mg STK-MED ONCE .ROUTE Last administered on 10/04/24at 07:55; Start 10/04/24 at 07:06; Stop 10/04/24 at 07:06; Status DC Ketorolac Tromethamine 30 mg STK-MED ONCE .ROUTE Last administered on 10/04/24at 00:00; Start 10/04/24 at 07:06; Stop 10/04/24 at 07:06; Status DC Ropivacaine 150 mg STK-MED ONCE .ROUTE Last administered on 10/04/24at 00:00; Start 10/04/24 at 07:06; Stop 10/04/24 at 07:06; Status DC Sodium Chloride 1,000 ml @ 100 mls/hr Q10H IV Last administered on 10/05/24at 03:36; Start 10/04/24 at 07:30; Stop 10/05/24 at 07:29; Status DC Polyethylene Glycol 17 gm DAILY PO Last administered on 10/05/24at 07:47; Start 10/04/24 at 09:00; Stop 11/03/24 at 08:59 Bisacodyl 10 mg DAILY PRN RC; Start 10/07/24 at 07:30; Stop 11/06/24 at 07:29 Aspirin 325 mg BID PO Last administered on 10/05/24at 07:46; Start 10/04/24 at 09:00; Stop 11/03/24 at 08:59 Ketorolac Tromethamine 15 mg Q6H PRN IV Last administered on 10/05/24at 06:13; Start 10/05/24 at 07:30; Stop 10/10/24 at 07:29 Ferrous Fumarate 324 mg DAILY PRN PO; Start 10/04/24 at 07:30; Stop 11/03/24 at 07:29 Ondansetron HCl 4 mg Q6H PRN IVP; Start 10/04/24 at 07:30; Stop 11/03/24 at 07:29 Calcium Carbonate 500 mg Q12H PRN PO Last administered on 10/05/24at 06:07; Start 10/04/24 at 07:30; Stop 11/03/24 at 07:29 Insulin Human Regular INSULIN SLIDING SCAL... ACHS SQ; Start 10/04/24 at 07:30; Stop 11/03/24 at 07:29 Cefazolin Sodium 2 gm Q8H IVP Last administered on 10/04/24at 20:29; Start 10/04/24 at 12:30; Stop 10/04/24 at 20:31; Status DC Cyclobenzaprine HCl 5 mg Q8H PRN PO Last administered on 10/05/24at 00:10; Start 10/04/24 at 07:30; Stop 11/03/24 at 07:29 Gabapentin 100 mg TID PO Last administered on 10/05/24at 07:51; Start 10/04/24 at 09:00; Stop 11/03/24 at 08:59 Ketorolac Tromethamine 15 mg Q8H IV Last administered on 10/04/24at 10:53; Start 10/04/24 at 07:30; Stop 10/04/24 at 17:09; Status DC Docusate Sodium 100 mg BID PO Last administered on 10/05/24at 07:47; Start 10/04/24 at 09:00; Stop 11/03/24 at 08:59 Potassium Chloride 100 ml @ 100 mls/hr AD PRN IV; Start 10/04/24 at 07:30; Stop 11/03/24 at 07:29 Potassium Chloride 20 meq AD PRN PO; Start 10/04/24 at 07:30; Stop 11/03/24 at 07:29 Potassium Chloride 20 meq AD PRN PO Last administered on 10/05/24at 06:07; Start 10/04/24 at 07:30; Stop 11/03/24 at 07:29 Tramadol HCl 50 mg Q6H PRN PO; Start 10/04/24 at 07:30; Stop 10/09/24 at 07:29 Acetaminophen/ Hydrocodone Bitart Q4H PRN PO Last administered on 10/05/24at 07:49; Start 10/04/24 at 07:30; Stop 10/09/24 at 07:29 Atorvastatin Calcium 40 mg HS PO Last administered on 10/04/24at 20:28; Start 10/04/24 at 21:00; Stop 11/03/24 at 20:59 Carvedilol 6.25 mg BID PO Last administered on 10/05/24at 07:46; Start 10/04/24 at 09:00; Stop 11/03/24 at 08:59 Folic Acid 1 mg DAILY PO Last administered on 10/05/24at 07:45; Start 10/04/24 at 09:00; Stop 11/03/24 at 08:59 Latanoprost 1 DROP HS OP; Start 10/04/24 at 21:00; Stop 11/03/24 at 20:59 Lisinopril 40 mg DAILY PO Last administered on 10/05/24at 07:47; Start 10/04/24 at 09:00; Stop 11/03/24 at 08:59 Metformin HCl 500 mg BID PO Last administered on 10/05/24at 07:46; Start 10/04/24 at 09:00; Stop 11/03/24 at 08:59 Home Med (Cholestyramine (with Sugar) (Cholestyram... AM PO; Start 10/04/24 at 09:00; Stop 11/03/24 at 08:59 Hydrochlorothiazide 12.5 mg DAILY PO Last administered on 10/05/24at 07:47; Start 10/04/24 at 09:00; Stop 11/03/24 at 08:59 Pantoprazole Sodium 40 mg DAILY PO Last administered on 10/05/24at 07:47; Start 10/04/24 at 09:00; Stop 11/03/24 at 08:59 Home Med (Primidone (Mysoline) 250 MG) HS PO; Start 10/04/24 at 21:00; Stop 11/03/24 at 20:59 Home Med (Vitamin B Complex 1 EACH) HS PO; Start 10/04/24 at 21:00; Stop 11/03/24 at 20:59 Dexamethasone Sodium Phosphate 10 mg STK-MED ONCE .ROUTE; Start 10/04/24 at 07:34; Stop 10/04/24 at 07:34; Status DC Rocuronium [place] 50 mg STK-MED ONCE .ROUTE; Start 10/04/24 at 07:52; Stop 10/04/24 at 07:58; Status DC Ephedrine Sulfate 50 mg STK-MED ONCE .ROUTE; Start 10/04/24 at 07:58; Stop 10/04/24 at 07:58; Status DC Phenylephrine HCl 10 mg STK-MED ONCE IV; Start 10/04/24 at 08:12; Stop 10/04/24 at 08:12; Status DC Glycopyrrolate 1 mg STK-MED ONCE .ROUTE; Start 10/04/24 at 10:12; Stop 10/04/24 at 10:12; Status DC Neostigmine Methylsulfate 10 mg STK-MED ONCE IV; Start 10/04/24 at 10:12; Stop 10/04/24 at 10:12; Status DC Fentanyl Citrate 100 mcg STK-MED ONCE .ROUTE; Start 10/04/24 at 10:14; Stop 10/04/24 at 10:14; Status DC Ketorolac Tromethamine 30 mg STK-MED ONCE .ROUTE; Start 10/04/24 at 10:15; Stop 10/04/24 at 10:16; Status DC Meperidine HCl 50 mg STK-MED ONCE .ROUTE Last administered on 10/04/24at 11:05; Start 10/04/24 at 10:50; Stop 10/04/24 at 10:50; Status DC Ketorolac Tromethamine 15 mg STK-MED ONCE .ROUTE; Start 10/04/24 at 10:50; Stop 10/04/24 at 10:51; Status DC Acetaminophen 100 ml @ As Directed STK-MED ONCE .ROUTE Last administered on 10/04/24at 10:55; Start 10/04/24 at 10:51; Stop 10/04/24 at 10:51; Status DC Cefazolin Sodium 2 gm STK-MED ONCE .ROUTE; Start 10/04/24 at 16:04; Stop 10/04/24 at 16:04; Status DC Ketorolac Tromethamine 15 mg Q8H IV Last administered on 10/05/24at 02:41; Start 10/04/24 at 18:00; Stop 10/05/24 at 02:01; Status DC Ketorolac Tromethamine 15 mg STK-MED ONCE .ROUTE; Start 10/05/24 at 06:11; Stop 10/05/24 at 06:12; Status DC CHETAN RUDOLPH NP Oct 05, 2024 08:28
[2024-10-05 09:00] VITALS: O2SAT 93
--- NOTE | 2024-10-05 09:55 | NUR ---
ORTHO COORDINATOR: PATIENT WITH PHYSICAL THERAPY, WILL RETURN. 1040: PATIENT UP TO CHAIR. INCENTIVE SPIROMETER ON BEDSIDE TRAY. B SCD SLEEVES IN ROOM. SCD MACHINE IN ROOM. PATIENT HAD R TKA IN JUNE 2024. PAIN EXPECTATIONS MANAGED. TEACHING REGARDING DVT AND PNEUMONIA PREVENTION. PAIN MANAGEMENT REVIEWED. PATIENT RETURNED DEMONSTRATED PROPER USE OF INCENTIVE SPIROMETER AND PERFORMED FOOT FLEXION AND EXTENSION EXERCISES. REMINDED PATIENT PAIN MEDICATIONS ARE UPON REQUEST. PATIENT REQUESTED LAST TIME TAKEN BE COMMUNICATED ON THE BOARD. NO ADDITIONAL QUESTIONS, CONCERNS AT THIS TIME. [address] LAST DOSE OF PAIN MEDICATIONS ON WHITE BOARD TO PRIMARY NURSE. PRIMARY NURSE ACKNOWLEDGED COMMUNICATION.
[2024-10-05 12:00] VITALS: BP 120/53; PULSE 64; RESP 18; TEMP 97.8
[2024-10-05] MEDS ORDERED: CYCL-309 PO (12:35)
[2024-10-05] MEDS ORDERED: HYDR-4060 PO (12:35)
[2024-10-05] MEDS ORDERED: ASPI-1026 PO (12:35)
[2024-10-05] MEDS ORDERED: GABA100C PO (12:35)
[2024-10-05] MEDS ORDERED: DOCU-116 PO (12:35)
[2024-10-05 16:00] VITALS: BP 147/68; PULSE 72; RESP 18; TEMP 98.2
--- NOTE | 2024-10-05 16:00 | NUR ---
DC PLAN VISITED WITH PATIENT. PATIENT LIVES WITH SPOUSE. INDEPENDENT ABLE TO PERFORM ADL'S. PATIENT HAS DME WALKER, CANE, ROLLATOR WALKER. SET UP OUT PATIENT PHYSICAL THERAPY ALREADY HAS APPOINTMENT FOR WEDNESDAY. PATIENT FEELS SAFE TO RETURN HOME. LET NURSE AND MD KNOW. Addendum: 10/05/24 at 1611 by DENISE HUBBARD RN CM Amended: Links added.
--- NOTE | 2024-10-05 16:32 | NUR ---
DISCHARGE PATIENT'S PIV DC'D AND BANDS REMOVED. PATIENT VERBALIZED UNDERSTANDING OF DISCHARGE INSTRUCTIONS, FOLLOW UP APPOINTMENT, AND PRESCRIPTION MEDICATIONS. ALL QUESTIONS ANSWERED AT THE BEDSIDE. PATIENT LEFT VIA WHEELCHAIR.
[2024-10-07] MEDS ORDERED: BisaCODYL 10 MG SUPP.RECT RC PRN (07:30)
== END 2024-10-05 17:30 | disposition home or self-care (01) ==
LOC: DAH 05:36 → DAHIP 05:37 → DAH 05:37 → 4CH 17:00
PROVIDERS: ADMIT Student in an Organized Health Care Education/Training Program; ATTEND Student in an Organized Health Care Education/Training Program
DX: M17.12 Unilateral primary osteoarthritis, left knee (principal); G89.18 Other acute postprocedural pain; D62 Acute posthemorrhagic anemia; E11.9 Type 2 diabetes mellitus without complications; E78.5 Hyperlipidemia, unspecified; I11.9 Hypertensive heart disease without heart failure; Z79.899 Other long term (current) drug therapy; Z90.49 Acquired absence of other specified parts of digestive tract; Z79.82 Long term (current) use of aspirin
CPT/HCPCS: 85025; 84134; 86140; 36415 ×2; 87641; 64447; 27447; 96374; 96375; 82948 ×6; 73560; 97161; 97530 ×3; 96376; 80048; 85027; 97116 ×2; G0378 ×23; A4663; J3010 ×3; J3490 ×5; J1100; J7030; J2250; J2704; J2405; J1885 ×6; J2710; J2175; J2795 ×2; J2371; J0690 ×4; C1713 ×2; C1776 ×2; A4649 ×2; A4930; A6255; A5120; A4215; A4223 ×2; A4222; A4221; A4216

== ENCOUNTER 2024-12-01 05:42 | Day surgery (SDC) | payer OTHER ==
[2024-11-29 13:17] VITALS: BP 164/77; PULSE 70; RESP 18; TEMP 97.8
[2024-11-29 13:20] LABS: BASOPHILS # (AUTO) 0.03 K/uL (0.00-0.20); BASOPHILS % (AUTO) 0.4 % (0.0-5.0); EOSINOPHILS # (AUTO) 0.18 K/uL (0.00-0.70); EOSINOPHILS % (AUTO) 2.3 % (0.0-8.0); HEMATOCRIT 32.5 % (42-54); IMMATURE GRANULOCYTE ABSOLUTE 0.03 K/uL (0-1); LYMPHOCYTES # (AUTO) 1.7 K/uL (1.0-4.8); LYMPHOCYTES % (AUTO) 22.7 % (21.0-51.0); MEAN CORPUSCULAR HEMOGLOBIN 27.1 pg (27.0-33.0); MEAN CORPUSCULAR HGB CONC 31.7 g/dL (32.0-36.0); MEAN CORPUSCULAR VOLUME 85.5 fL (79-99); MONOCYTES # (AUTO) 0.8 K/uL (0.1-1.0); MONOCYTES % (AUTO) 10.8 % (3.0-13.0); NEUTROPHILS # (AUTO) 4.9 K/uL (1.8-7.7); NEUTROPHILS % (AUTO) 63.4 % (40.0-77.0); PLATELET COUNT (AUTO) 285 K/uL (130-400); WHITE BLOOD COUNT (AUTO) 7.7 K/uL (4.8-10.8)
[2024-11-29 13:29] LABS: CREATININE 1.1 mg/dL (0.5-1.3); POTASSIUM 4.4 mmol/L (3.5-5.1)
[2024-11-29 13:50] LABS: INR 1.01 (0.85-1.15); PROTHROMBIN TIME 10.7 SEC (9.6-11.6)
[2024-11-29 13:51] LABS: PARTIAL THROMBOPLASTIN TIME 29.1 SEC (26.3-35.5)
--- NOTE | 2024-11-29 13:53 | EKG ---
[facility] Test Date: 2024-11-29 Test Time: 13:06:29 Pat Name: BROWN CARRERO Department: [facility] Room: Gender: M Production Support Consultant: [id number] : 1945 Requested By: RHEA MACARIO Order Number: [id number] Reading MD: Orion Jackson Measurements Intervals [place] Rate: 64 P: 30 MA: 153 QRS: -34 QRSD: 92 T: 0 QT: 403 QTc: 417 Interpretive Statements Sinus rhythm Left axis deviation Early R wave transition Compared to ECG 07/17/2024 06:31:57 Left-axis deviation now present Electronically Signed On 11-29-2024 14:06:18 CDT by Orion Jackson Please click the below link to view image of tracing.
[~2024-12-01] VITALS: Ht 175.3 cm; Wt 105.7 kg
[2024-12-01] VITALS (13 sets, daily range): BP systolic 108–144; BP diastolic 49–76; PULSE 58–74; RESP 12–20; TEMP 97.4–98.6
[~2024-12-01 05:42] MED LIST changes: +ASPI-1146 PO; -ASPI-1443 PO; +CYAN100084 PO; -CYAN100099 PO; +GABA-529 PO; +METH-812 PO; -OMEP20CA12 PO; +OMEP20TA20 PO
[2024-12-01] MEDS ORDERED: acetaMINOPHEN 325 MG TAB ONE (06:23)
[2024-12-01] MEDS ORDERED: FAMOTIDINE 20MG VIAL IV ONE (06:23)
[2024-12-01] MEDS ORDERED: ceFAZolin SODIUM 2 GM VIAL ONE (06:26)
[2024-12-01] MEDS: 0.9%NACL 1000ML 1,000 ML IV ONE (06:41)
[2024-12-01] MEDS ORDERED: ondanSETRON 4MG INJ ONE (06:42)
[2024-12-01] MEDS ORDERED: dexaMETHasone SOD PHOSPHATE 4 MG/ML 1ML VIAL ONE (06:42)
[2024-12-01] MEDS ORDERED: LIDOCAINE PF 100MG/5ML (2%) SYRINGE 5ML ONE (06:42)
[2024-12-01] MEDS ORDERED: FENTanyl CITRate PF 50 MCG/1 ML 2ML VIAL ONE (06:43)
[2024-12-01] MEDS ORDERED: proPOFol 10 MG/ML 20ML VIAL IV ONE (07:38)
[2024-12-01] MEDS: ceFAZolin SODIUM 2 GM VIAL IVPB ONE (07:39)
[2024-12-01] MEDS ORDERED: GLYCOPYRROLATE 0.2 MG/ML 5 ML VIAL ONE (07:57)
[2024-12-01] MEDS ORDERED: ketOROlac 30MG VIAL (30MG/ML) ONE (07:57)
[2024-12-01] MEDS ORDERED: HYDR-4060 PO (08:11)
--- NOTE | 2024-12-01 09:09 | NUR ---
Full and complete discharge instructions given to Patient and Family both verbally and in writing. Explained Non Surgical Manipulation to Knee procedure precautions and follow up. Crutch training pending before discharge. Informed [facility] PT All questions answered. PIV removed with catheter tip intact. at bedside appearing supportive.
--- NOTE | 2024-12-01 10:15 | NUR ---
Order received and patient evaluated. Patient is s/p L knee manipulation. Patient noted with knee stiffness and adhesions to incision line. Educated patient on Quad sets as well as knee flexion using hands for stretch. Patient was able to return demonstrate both exercises. With gait, patient was educated on heel-toe technique for improved knee extension as well as toe push off to facilitate knee flexion during swing phase of gait. Patient was able to return demonstrate this as well. Educated to perform exercises twice a day as instructed. Patient and spouse verbalized understanding. Addendum: 12/01/24 at 1604 by KATE CELAYA PT Amended: Links added.
--- NOTE | 2024-12-01 10:19 | NUR ---
PT evaluation completed. W/C to POV with to home.
--- NOTE | 2024-12-01 12:06 | HMCIMG ---
KNEE 4+VWS LT REASON: LT knee manipulation. COMPARISON: None TECHNIQUE: Fluoroscopic images of left knee were obtained. FINDINGS: Left knee arthroplasty changes are seen. Alignment appears to be grossly adequate. No acute displaced fracture or dislocation is seen. IMPRESSION: Findings as described above.
--- NOTE | 2024-12-01 15:09 | OP ---
Operative Note: DATE OF PROCEDURE: 12/01/24 SURGEON: RHEA MACARIO MD RECORD LABEL INTERN: Ren Davis ANESTHESIA: General ANESTHESIOLOGIST/WATER SERVICE SUPERVISOR: Ping Nino PREOPERATIVE DIAGNOSIS: Left knee postoperative flexion contracture POSTOPERATIVE DIAGNOSIS: Left knee postoperative flexion contracture PROCEDURE: Left knee manipulation under anesthesia ESTIMATED BLOOD LOSS: None INDICATIONS: 79-year-old male approximately six weeks status post left total knee arthroplasty with difficulty achieving full extension postoperatively. Discussed with the patient the risks, benefits, and alternatives to undergoing the aforementioned procedure and he elected to proceed with this procedure. DESCRIPTION OF PROCEDURE: Patient was properly identified in the preoperative holding area. Surgical site marking was verified and surgery consent reviewed. The patient was then taken to the operating room and placed in supine position on the OR table. After induction of general anesthesia, preoperative antibiotics were given, all bony prominences were well-padded. Surgical timeout was done verifying correct surgery, side, site, and location to be performed. We then began manipulating the left lower extremity with a bump under the Achilles and downward pressure applied over the proximal tibia and central portion of the knee. We felt some soft pops of soft tissue some of the fibrotic tissue tore. With one louder pop, we elected to go ahead and check under C-arm that there was no obvious bony injury. With AP and lateral view of the knee, there was a question of a small fibular head avulsion fragment without significant displacement. We then worked on increasing the flexion of this knee without significant palpable scar tissue release. We brought the knee into extension with a bump once more to work on achieving further extension with downward pressure applied over the proximal tibia/central portion of the knee we once again felt a some palpable soft tissue release. We then compared this to the contralateral leg where he now appeared to have better extension within this knee and flexion that was equal to the contralateral side but with stiffness due to residual soft tissue swelling. We then obtained our final fluoroscopic films with the AP and lateral in extension and flexion. The patient was then awakened from anesthesia and taken the recovery room in stable condition. RHEA MACARIO MD Dec 01, 2024 15:09
== END 2024-12-01 10:20 | disposition home or self-care (01) ==
LOC: DAH 05:42
PROVIDERS: ATTEND Student in an Organized Health Care Education/Training Program
DX: M96.89 Other intraoperative and postprocedural complications and disorders of the musculoskeletal system (principal); M24.562 Contracture, left knee; E11.9 Type 2 diabetes mellitus without complications; I10 Essential (primary) hypertension; E78.5 Hyperlipidemia, unspecified; K21.9 Gastro-esophageal reflux disease without esophagitis; M19.90 Unspecified osteoarthritis, unspecified site; Z90.49 Acquired absence of other specified parts of digestive tract; Z90.89 Acquired absence of other organs; Z98.890 Other specified postprocedural states; Z79.899 Other long term (current) drug therapy; Z79.01 Long term (current) use of anticoagulants; Z79.84 Long term (current) use of oral hypoglycemic drugs; Z83.3 Family history of diabetes mellitus; Z82.49 Family history of ischemic heart disease and other diseases of the circulatory system
CPT/HCPCS: 80048; 85025; 85610; 85730; 36415; 93005; 27570; 97161; 82948 ×2; 73564; 97116; J1100; J1885; A4663; A4606; J3490 ×2; J3010; J7030; J2003; J2704; J2405; J0690 ×2; A5120; A4215; A4213; A4222; A4221; A4216; A4223 ×2